=== PATIENT | female | born 1945 | race Caucasian/White ===

== ENCOUNTER → 2023-08-26 10:16 | Outpatient (CLI) | payer MEDICARE, OTHER, SELFPAY ==
--- NOTE | 2023-08-26 10:25 | DI.RAD.S_ITS ---
Bone Density Report Name: POLLO AUSTIN Age: 77 Sex: Female Ethnicity: White Date of : 1945 Indication: postmenopausal; screening for osteoporosis; parental hip fracture; Referring Provider: KEL PRAKASH Study: Bone densitometry was performed. Exam Date: August 26, 2023 Accession number: [id number] Bone Density: Region BMD T-score Z-score Classification AP Spine(L1-L4) 1.293 2.2 4.7 Normal Femoral Neck (Left) 0.773 -0.7 1.5 Normal Total Hip (Left) 1.025 0.7 2.6 Normal Femoral Neck (Right) 0.722 -1.1 1.0 Osteopenia Total Hip (Right) 0.987 0.4 2.3 Normal Total Hip Mean 1.006 0.6 2.5 Normal World Health Organization criteria for BMD impression classify patients as: Normal (T-score at or above -1.0), Osteopenia (T-score between -1.0 and -2.5), or Osteoporosis (T-score at or below -2.5). 10-year Fracture Risk(1): Major Osteoporotic Fracture 15% Hip Fracture 6.7% Reported Risk Factors: [place] (), Neck BMD=0.722, BMI=40.6, parental fracture (1) FRAX(R) Version 3.08. Fracture probability calculated for an untreated patient. Fracture probability may be lower if the patient has received treatment. Impression: The patient has low bone mass, based on the Right Femoral Neck T-score. The patient has an estimated ten-year risk of hip fracture of 6.7% and an estimated ten-year risk of major fracture of 15%, based on the WHO FRAX algorithm. The patient has risk factors, including: parental hip fracture. Discussion: BONE DENSITY IS LOW AT ONE OR MORE SKELETAL SITES. THE PATIENT'S BMD AND CLINICAL RISK FACTORS CONTRIBUTE TO THIS PATIENT'S INCREASED RISK OF FRACTURE. This patient's lowest T-score is low at one or more skeletal sites. It meets the World Health Organization's (WHO) criteria for low bone mass (T-score between -1.0 and -2.5). The patient's 10-year risk of hip fracture as calculated by FRAX exceeds the threshold where pharmacological therapy is recommended by the National Osteoporosis Foundation (NOF). However, all treatment decisions require clinical judgment and consideration of individual patient factors, including patient preferences, comorbidities, previous drug use, risk factors not captured in the FRAX model (e.g., frailty, falls, vitamin D deficiency, increased bone turnover, interval significant decline in bone density) and possible under or overestimation of fracture risk by FRAX. The patient should follow a healthful lifestyle (good nutrition with adequate calcium and vitamin D, and appropriate weight-bearing exercise). Follow-Up: Consider a repeat BMD and Vertebral Fracture Assessment (VFA) exam in 2 years or sooner if medically necessary, to reassess this patient's status. Reported by: SIVAKUMAR KRUEGER M.D. on 08/26/2023 11:06:00 AM.
== END ==
LOC: RAD 10:23
PROVIDERS: PCP Internal Medicine; Referring Provider Internal Medicine; Visit Provider Internal Medicine
DX: M85.851 Other specified disorders of bone density and structure, right thigh (principal); Z78.0 Asymptomatic menopausal state
CPT/HCPCS: 77080

== ENCOUNTER → 2023-10-08 11:36 | Outpatient (CLI) | payer MEDICARE, OTHER, SELFPAY ==
--- NOTE | 2023-10-08 11:37 | DI.MG.S_ITS ---
UNILATERAL LEFT DIGITAL DIAGNOSTIC MAMMOGRAM 3D/2D WITH ADDITIONAL VIEWS: 10/08/2023 CLINICAL: Additional evaluation requested from prior study. Comparison is made to exams dated: 09/11/2023 mammogram, 09/28/2021 mammogram, and 06/19/2018 mammogram - Outside facility. There are scattered areas of fibroglandular density in the left breast (category b / 25%-50% glandular tissue). There is a focal asymmetry with an obscured and circumscribed margin in the left breast at 2 o'clock posterior depth. This is seen in additional views. This finding was likely present but less prominent on prior studies dating back to 2019. No other significant masses or calcifications are seen in the breast. IMPRESSION: INCOMPLETE: NEEDS ADDITIONAL IMAGING EVALUATION The focal asymmetry in the left breast is indeterminate. An ultrasound is recommended. Based on the Tyrer Cuzick model (a risk assessment model) the patient's lifetime risk is 2.1% and her 10 year risk is 0.0%. According to the ACR, ACS, and NCCN guidelines, an annual breast MRI exam along with mammogram is recommended if the patient's lifetime risk is 20% or greater. This exam was interpreted at Station ID: [id number]. NOTE: For mammograms, a report in lay terms will be sent to the patient. Approximately 15% of breast malignancies will not be visualized mammographically. In the management of a palpable breast mass, a negative mammogram must not discourage biopsy of a clinically suspicious lesion. Electronically Signed By: Steve ahmadi/sarika:10/08/2023 13:34:29 ACR BI-RADS Category 0: Incomplete [id number]
--- NOTE | 2023-10-08 11:37 | DI.US.S_ITS ---
LIMITED SECONDLOOK ULTRASOUND OF LEFT BREAST: 10/08/2023 CLINICAL: Follow up from addtional views. Baseline exam. Additional evaluation requested from prior study. Comparison is made to exams dated: 10/08/2023 mammogram - [facility], 09/11/2023 mammogram, 09/28/2021 mammogram, and 06/19/2018 mammogram - Outside facility. Color flow ultrasound of the left breast 2 o'clock region was performed. Sáncehz scale images of the real-time examination were reviewed. There is a 2.1 cm x 1.7 cm x 0.6 cm irregular fluid collection with an irregular internal wall in the left breast at 2 o'clock posterior depth 10 cm from the nipple. This irregular fluid collection is anechoic with posterior acoustic enhancement. This correlates with mammography findings. Color flow imaging demonstrates that there is no vascularity present. IMPRESSION: PROBABLY BENIGN The 2.1 cm x 1.7 cm x 0.6 cm irregular fluid collection in the left breast is probably benign. A follow-up left ultrasound in 6 months is recommended to demonstrate stability. This exam was interpreted at Station ID: [id number]. Electronically Signed By: Steve ahmadi/sarika:10/08/2023 13:36:24 letter sent: Followup Recommended Ultrasound BI-RADS: 3 Probably benign
== END ==
LOC: MAMMO 11:37
PROVIDERS: PCP Internal Medicine; Referring Provider Internal Medicine; Visit Provider Internal Medicine
DX: R92.8 Other abnormal and inconclusive findings on diagnostic imaging of breast (principal); R92.322 Mammographic fibroglandular density, left breast
CPT/HCPCS: 76642; 77065; G0279

== ENCOUNTER 2024-05-13 12:49 | Emergency (ER) | payer MEDICARE, OTHER, SELFPAY ==
[2024-05-13] VITALS (12 sets, daily range): BP systolic 135–233; BP diastolic 73–108; PULSE 61–75; RESP 16; TEMP 36.5; O2SAT 92–96; BMI 40.2
--- NOTE | 2024-05-13 13:12 | DI.CT.S_ITS ---
PROCEDURE: CT KIDNEY URETER BLADDER (KUB) INDICATIONS: Right-sided flank pain eval for stone TECHNIQUE: Axial sections were acquired from the lung bases to the pubic symphysis. Coronal and sagittal reformats were performed. For radiation dose reduction, the following was used: automated exposure control, adjustment of mA and/or kV according to patient size. COMPARISON: None. FINDINGS: Image quality: Diagnostic. Lower Chest: There are 2 3 mm nodules in the right middle lobe. No priors. URINARY: Right Kidney: No stones or hydronephrosis. Right Ureter: No hydroureter. Left Kidney: [id number] hydronephrosis with large extrarenal pelvis. Calcification is present in the renal pelvis measuring 9 mm, Hounsfield units 1213. Left Ureter: No hydroureter. Bladder: Normal wall thickness. No stones. ABDOMEN: Liver: No contour-deforming solid mass. Gallbladder: Removed. Biliary ducts: No biliary dilation. Pancreas: No ductal dilation. Spleen: Size is within normal limits. Adrenal Glands: No adrenal nodules. Stomach and Bowel: Normal colonic caliber, without significant wall thickening. Mild colonic stool without obstruction. Diverticula without inflammatory change. Peritoneum: Trace dependent pelvic fluid. No free air. Ventral Wall: No hernia. Abdominal Nodes: No enlarged retroperitoneal or mesenteric lymph nodes. Vessels: Aorta and inferior vena cava are normal in size. PELVIS: Pelvic Organs: Unremarkable. Pelvic Nodes: 1.4 cm inguinal lymph in short axis. Miscellaneous: No inguinal hernias are seen. 4.7 x 5.5 cm fat containing mass with areas internal calcification or potentially vascularity in the left anterior thighs series 2, image 162. No priors. Bones: Unremarkable. IMPRESSION: No visualized right renal or ureteral obstruction. No calcification. Left kidney demonstrates mild hydronephrosis with 9 mm stone in the prominent extrarenal pelvis. 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 Diverticulosis. Fat containing mass with calcifications or possibly vascularity in the right anterior thigh. 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 MRI is recommended for further evaluation. 1 4 cm left inguinal lymph node. This could be reactive in nature. Interval follow-up is recommended. 3 mm right middle lobe pulmonary nodules. No priors are available for comparison. These are nonspecific. Dictated by: Lakeisha Osorio M.D. on 05/13/2024 at 14:24 Approved by: Lakeisha Osorio M.D. on 05/13/2024 at 14:30
[2024-05-13 14:08] LABS: Appearance Urine UA CLEAR; Bilirubin Urine UA NEGATIVE (NEGATIVE); Color Urine UA YELLOW; Glucose Urine UA NEGATIVE (Negative); Ketones Urine UA NEGATIVE (NEGATIVE); Leukocyte Esterase Urine UA NEGATIVE (NEGATIVE); Nitrite Urine UA NEGATIVE (Negative); Occult Blood Urine UA 2+ (Negative); Protein Urine UA 3+ (Negative)
[2024-05-13 14:10] LABS: pH Urine UA 8.5 (4.5-8.0)
[2024-05-13 14:20] LABS: Bacteria Urine Occasional (0-1); Culture Indicated Urine Cult Not Indicated; RBC Urine 5-10/HPF (0-5/HPF); Squamous Epithelial Cell Urine 5-10 /HPF (0-5/HPF); Urine Volume 10mL (spun); WBC Urine 0-1/HPF (0-5/HPF)
--- NOTE | 2024-05-13 14:40 | ED_ITS ---
HPI - Back Pain/Injury General Chief Complaint: Back Pain/Injury Stated Complaint: R Side/Back Pain Time Seen by Provider: 05/13/24 13:12 Source: patient Mode of arrival: Ambulatory Limitations: no limitations History of Present Illness HPI Narrative: 78-year-old female who states she was woken up from sleep at approximately 0300 hours in the morning with right-sided upper abdominal discomfort. She has had a hysterectomy and a cholecystectomy. She states the pain was constant however now it is much better if not somewhat resolved. No skin changes over the area. She states that she did not think that it particularly hurt when she touched the area but when she did take a deep breath. She has been coughing recently. She did not take her blood pressure medications this morning. No change in urinary symptoms. No change in bowel habits. No fevers. No shortness of breath. Related Data Home Medications Medication Instructions Recorded Confirmed amlodipine 5 mg tablet 5 mg PO DAILY 05/13/24 05/13/24 carvedilol 12.5 mg tablet 12.5 mg PO BID 05/13/24 05/13/24 lisinopril 20 mg tablet 20 mg PO BID 05/13/24 05/13/24 Allergies Allergy/AdvReac Type Severity Reaction Status Date / Time No Known Drug Allergies Allergy Verified 05/13/24 12:59 Review of Systems Review of Systems ROS Unobtainable: All systems reviewed & are unremarkable except as noted in HPI and below Exam Initial Vital Signs Initial Vital Signs: Vital Signs Temperature 97.7 F 05/13/24 13:00 Pulse Rate 75 05/13/24 13:00 Respiratory Rate 16 05/13/24 13:00 Blood Pressure 220/98 H 05/13/24 13:00 Pulse Oximetry 96 05/13/24 13:00 Oxygen Delivery Method Room Air 05/13/24 13:00 Const General: cooperative, comfortable and No ill appearing HENTN Head: normal to inspection and normocephalic Resp Effort & Inspection: normal respiratory effort Auscultation: clear to auscultation bilaterally Cardio Rate: regular rate Rhythm: regular rhythm GI Inspection: normal to inspection and non-distended Palpation: soft, No firm, No guarding and No tender Skin General: no rashes or lesions noted Neuro General: patient alert, patient awake and patient oriented x3 Extrem General: capillary refill normal Course Orders Ordered: ED Orders 05/13/24 13:12 CT kidney ureter bladder (KUB) Stat 05/13/24 13:34 Urinalysis and Microscopic Stat 05/13/24 14:30 Basic Metabolic Panel Stat Complete Blood Count AUTO DIFF Stat 05/13/24 14:40 Urine Culture Stat Discontinued Medications Carvedilol (Carvedilol 12.5 Mg Tablet) 12.5 mg PO NOW ONE Stop: 05/13/24 14:50 Last Admin: 05/13/24 14:55 Dose: 12.5 mg Documented By: RB Lisinopril (Lisinopril 20 Mg Tablet) 20 mg PO NOW ONE Stop: 05/13/24 14:50 Last Admin: 05/13/24 14:56 Dose: 20 mg Documented By: RB Vital Signs Vital signs: Vital Signs - 8 hr 05/13/24 13:00 05/13/24 13:05 05/13/24 13:36 Temperature 97.7 F Pulse Rate 75 66 Respiratory Rate 16 Blood Pressure 220/98 H 196/92 H Pulse Oximetry 96 94 Oxygen Delivery Method Room Air 05/13/24 13:39 05/13/24 13:39 05/13/24 14:00 Temperature Pulse Rate 66 Respiratory Rate Blood Pressure 201/88 H 213/87 H Pulse Oximetry 94 Oxygen Delivery Method 05/13/24 14:00 05/13/24 14:30 05/13/24 14:33 Temperature Pulse Rate 61 69 Respiratory Rate Blood Pressure 233/100 H Pulse Oximetry 92 93 Oxygen Delivery Method 05/13/24 14:33 05/13/24 14:49 05/13/24 14:49 Temperature Pulse Rate 67 69 Respiratory Rate Blood Pressure 233/108 H Pulse Oximetry 94 94 Oxygen Delivery Method 05/13/24 14:55 05/13/24 14:56 05/13/24 15:00 Temperature Pulse Rate 67 67 68 Respiratory Rate Blood Pressure 233/100 H 233/100 H Pulse Oximetry 95 Oxygen Delivery Method 05/13/24 15:30 05/13/24 15:30 Temperature Pulse Rate 65 Respiratory Rate Blood Pressure 135/73 Pulse Oximetry 95 Oxygen Delivery Method MDM - Back Pain/Injury Lab Data Attestation: I reviewed the patient's lab results. 05/13/24 14:30 05/13/24 14:30 Labs: Lab Results 05/13/24 05/13/24 Range/Units 13:34 14:30 WBC 9.4 (4.5-11.0) X10^3/uL RBC 4.10 (4.0-5.2) X10^6/uL Hgb 13.4 (12.0-16.0) g/dL Hct 39.2 (36-46) % MCV 95.4 (80-100) fL MCH 32.7 (26-34) PG MCHC 34.2 (30-36) % RDW 15.2 H (11.6-14.8) % Plt Count 128 L (150-400) X10^3/uL Neut % (Auto) 83.7 H (50-75) % Lymph % (Auto) 8.2 L (25-40) % Ellis % (Auto) 6.7 (3-14) % Eos % (Auto) 0.7 L (2-4) % Baso % (Auto) 0.7 (0-2) % Neut # (Auto) 7900 H (2754-0562) /uL Lymph # (Auto) 800 L (4029-7532) /uL Ellis # (Auto) 600 (0-900) /uL Eos # (Auto) 100 (0-450) /uL Baso # (Auto) 100 (0-100) /uL Sodium 134 L (137-145) mmol/L Potassium 4.4 (3.4-5.1) mmol/L Chloride 99 (98-107) mmol/L Carbon Dioxide 31 (22-32) mmol/L BUN 13 (7-17) mg/dL Creatinine 0.81 (0.52-1.04) mg/dL Estimated GFR > 60 (>60) mL/min BUN/Creatinine Ratio 16.0 (6-22) Glucose 96 (80-110) mg/dL Calcium 8.6 (8.4-10.2) mg/dL Urine Color Yellow Urine Appearance Clear Urine pH 8.5 H (4.5-8.0) Ur Specific [place] 1.020 (1.000-1.035) Urine Protein 3+ H (Negative) Urine Glucose (UA) Negative (Negative) g/dL Urine Ketones Negative (NEGATIVE) Urine Occult Blood 2+ H (Negative) Urine Nitrate Negative (Negative) Urine Bilirubin Negative (NEGATIVE) Urine Urobilinogen 1.0 (0.2) E.U./dL Ur Leukocyte Esterase Negative (NEGATIVE) Urine RBC 5-10/hpf H (0-5/HPF) Urine WBC 0-1/hpf (0-5/HPF) Ur Squamous Epith Cells 5-10 /hpf H (0-5/HPF) Urine Bacteria Occasional (0-1) (None) Ur Culture Indicated? Cult not indicated Vol Urine Centrifuged 10ml (spun) Imaging Data CT scan - abdomen/pelvis: Radiologist's Impression: PROCEDURE: CT KIDNEY URETER BLADDER (KUB) INDICATIONS: Right-sided flank pain eval for stone TECHNIQUE: Axial sections were acquired from the lung bases to the pubic symphysis. Coronal and sagittal reformats were performed. For radiation dose reduction, the following was used: automated exposure control, adjustment of mA and/or kV according to patient size. COMPARISON: None. FINDINGS: Image quality: Diagnostic. Lower Chest: There are 2 3 mm nodules in the right middle lobe. No priors. URINARY: Right Kidney: No stones or hydronephrosis. Right Ureter: No hydroureter. Left Kidney: Jugl-um-ukhsivos hydronephrosis with large extrarenal pelvis. Calcification is present in the renal pelvis measuring 9 mm, Hounsfield units 1213. Left Ureter: No hydroureter. Bladder: Normal wall thickness. No stones. ABDOMEN: Liver: No contour-deforming solid mass. Gallbladder: Removed. Biliary ducts: No biliary dilation. Pancreas: No ductal dilation. Spleen: Size is within normal limits. Adrenal Glands: No adrenal nodules. Stomach and Bowel: Normal colonic caliber, without significant wall thickening. Mild colonic stool without obstruction. Diverticula without inflammatory change. Peritoneum: Trace dependent pelvic fluid. No free air. Ventral Wall: No hernia. Abdominal Nodes: No enlarged retroperitoneal or mesenteric lymph nodes. Vessels: Aorta and inferior vena cava are normal in size. PELVIS: Pelvic Organs: Unremarkable. Pelvic Nodes: 1.4 cm inguinal lymph in short axis. Miscellaneous: No inguinal hernias are seen. 4.7 x 5.5 cm fat containing mass with areas internal calcification or potentially vascularity in the left anterior thighs series 2, image 162. No priors. Bones: Unremarkable. IMPRESSION: No visualized right renal or ureteral obstruction. No calcification. Left kidney demonstrates mild hydronephrosis with 9 mm stone in the prominent extrarenal pelvis. 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 Diverticulosis. Fat containing mass with calcifications or possibly vascularity in the right anterior thigh. 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 MRI is recommended for further evaluation. 1 4 cm left inguinal lymph node. This could be reactive in nature. Interval follow-up is recommended. 3 mm right middle lobe pulmonary nodules. No priors are available for comparison. These are nonspecific. MDM Narrative Medical decision making narrative: Patient does report that her discomfort is actually improved from what it was earlier today. She was no skin changes over the area concerning for zoster. Her discomfort is in the right side of her abdomen. She was had her gallbladder removed. CT scan shows no signs of right-sided nephro/ureterolithiasis. Urinalysis not consistent with a UTI. Low suspicion for pyelo. No signs of diverticulitis/bowel obstruction. No other signs of an acute intra-abdominal surgical pathology. She does have a left-sided proximal ureteral stone she was no discomfort over on that side. She also has other multiple incidental findings on the CT scan. I did discuss these with her. She was an appointment with a new primary doctor in approximately 1 month from now and I advised that she talk with her doctor about these incidental findings for further evaluation. She was given return precautions and follow-up instructions. She expressed understanding and agreement with plan. Discharge Plan Departure Patient Disposition: Home Clinical Impression: Abdominal pain, Pulmonary nodule, Inguinal lymphadenopathy, Mass of right thigh, Left ureteral calculus Instructions: DI for Abdominal Pain-Adult Activity Restrictions/Additional Instructions: There were multiple incidental findings on the CT scan today that when you follow-up with your primary care doctor the beginning of next month I recommend that you talk with her to discuss further evaluation and treatment. You can take Tylenol as needed. Return to the emergency department for new or worsening symptoms. Prescriptions: No Action carvedilol 12.5 mg tablet 12.5 mg PO BID amlodipine 5 mg tablet 5 mg PO DAILY lisinopril 20 mg tablet 20 mg PO BID Patient Comments: Take 1 tablet by mouth every morning and 1/2 tablet by mouth every evening. Referrals: Nicole Saunders MD [Primary Care Provider] - Stand Alone Forms: Patient Portal/API/Survey
[2024-05-13 14:44] LABS: Add Manual Diff / Slide Review NO; Basophils Absolute Auto 100 /uL (0-100); Basophils Percent Auto 0.7 % (0-2); Eosinophils Absolute Auto 100 /uL (0-450); Eosinophils Percent Auto 0.7 % (2-4); Hematocrit 39.2 % (36-46); Hemoglobin 13.4 g/dL (12.0-16.0); Lymphocytes Absolute Auto 800 /uL (1100-4500); Lymphocytes Percent Auto 8.2 % (25-40); Mean Corpuscular HGB Conc 34.2 % (30-36); Mean Corpuscular Hemoglobin 32.7 PG (26-34); Mean Corpuscular Volume 95.4 fL (80-100); Monocytes Absolute Auto 600 /uL (0-900); Monocytes Percent Auto 6.7 % (3-14); Neutrophils Absolute Auto 7900 /uL (1500-7000); Neutrophils Percent Auto 83.7 % (50-75); Platelet Count 128 X10^3/uL (150-400); Red Cell Distribution Width 15.2 % (11.6-14.8); White Blood Cell Count 9.4 X10^3/uL (4.5-11.0)
[2024-05-13] MEDS: carvediloL 12.5 MG TABLET PO (14:55)
[2024-05-13] MEDS: lisinopriL 20 MG TABLET PO (14:56)
--- NOTE | 2024-05-13 14:58 | PC.NURSE ---
this RN noted increased blood pressure. I asked patient if they had known high blood pressure. They confirmed that they did and forgot to take their medications. This RN reconciled patients blood pressure medications. Patient takes lisinopril and carvedilol twice daily and amolodapine at night. This RN informed provider of elevated blood pressure and they input new orders. This RN administered medications.
[2024-05-13 14:59] LABS: Blood Urea Nitrogen 13 mg/dL (7-17); Calcium 8.6 mg/dL (8.4-10.2); Carbon Dioxide 31 mmol/L (22-32); Chloride 99 mmol/L (98-107); Estimated Glomerular Filt Rate > 60 mL/min (>60); Glucose 96 mg/dL (80-110); HEMOLYSIS 16 (0-50); Potassium 4.4 mmol/L (3.4-5.1); Sodium 134 mmol/L (137-145)
== END 2024-05-13 15:57 | disposition home or self-care (01) ==
PROVIDERS: Emergency Provider Emergency Medicine; PCP Internal Medicine
DX: R10.11 Right upper quadrant pain (principal); R91.1 Solitary pulmonary nodule; R59.0 Localized enlarged lymph nodes; N20.1 Calculus of ureter; Z90.49 Acquired absence of other specified parts of digestive tract; Z90.710 Acquired absence of both cervix and uterus
CPT/HCPCS: 74176; 80048; 81001; 85025; 87086; 99283; 99284

== ENCOUNTER 2024-10-14 14:26 | Inpatient (IN) | payer MEDICARE, OTHER, SELFPAY ==
[2024-10-14] VITALS (33 sets, daily range): BP systolic 143–189; BP diastolic 51–109; PULSE 37–57; RESP 11–36; TEMP 36.6–37.1; O2SAT 86–98; BMI 39.5
--- NOTE | 2024-10-14 14:36 | EKG_ITS ---
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
--- NOTE | 2024-10-14 14:36 | DI.RAD.S_ITS ---
PROCEDURE: XR CHEST 1V INDICATIONS: Shortness of breath TECHNIQUE: One view of the chest was acquired. COMPARISON: None. FINDINGS: Surgical changes and devices: None. Lungs and pleura: Mild increased pulmonary vascularity. Minimal blunting of the costophrenic angles. Mediastinum: Mediastinal contours appear normal. Heart size is enlarged. Bones and chest wall: No suspicious bony lesions. Overlying soft tissues appear unremarkable. IMPRESSION: Increased vascularity with likely trace effusions and cardiomegaly consistent with edema. Dictated by: Lakeisha Osorio M.D. on 10/14/2024 at 15:27 Approved by: Lakeisha Osorio M.D. on 10/14/2024 at 15:28
[2024-10-14 14:56] LABS: Add Manual Diff / Slide Review NO; Basophils Absolute Auto 0 /uL (0-100); Basophils Percent Auto 0.5 % (0-2); Eosinophils Absolute Auto 200 /uL (0-450); Eosinophils Percent Auto 2.4 % (2-4); Hematocrit 35.5 % (36-46); Hemoglobin 12.5 g/dL (12.0-16.0); Lymphocytes Absolute Auto 800 /uL (1100-4500); Lymphocytes Percent Auto 12.2 % (25-40); Mean Corpuscular HGB Conc 35.2 % (30-36); Mean Corpuscular Volume 96.6 fL (80-100); Monocytes Absolute Auto 500 /uL (0-900); Monocytes Percent Auto 8.6 % (3-14); Neutrophils Absolute Auto 4800 /uL (1500-7000); Neutrophils Percent Auto 76.3 % (50-75); Platelet Count 128 X10^3/uL (150-400); Red Blood Cell Count 3.68 X10^6/uL (4.0-5.2); Red Cell Distribution Width 15.2 % (11.6-14.8); White Blood Cell Count 6.3 X10^3/uL (4.5-11.0)
[2024-10-14 15:00] LABS: INR 1.2 (0.9-1.3); Prothrombin Time 13.4 SECONDS (9.4-12.5)
[2024-10-14 15:05] LABS: Lactate (Lactic Acid) 0.5 mmol/L (0.7-2.1)
[2024-10-14 15:06] LABS: Alanine Aminotransferase 20 IU/L (<35); Albumin 3.9 g/dL (3.5-5.0); Albumin Globulin Ratio 1.1 (1.0-2.8); Alkaline Phosphatase 83 U/L (38-126); Aspartate Aminotransferase 30 IU/L (14-36); BUN Creatinine Ratio 24.4 (6-22); Bilirubin Total 1.7 mg/dL (0.2-1.3); Blood Urea Nitrogen 20 mg/dL (7-17); Calcium 8.6 mg/dL (8.4-10.2); Carbon Dioxide 32 mmol/L (22-32); Chloride 100 mmol/L (98-107); Estimated Glomerular Filt Rate > 60 mL/min (>60); Globulin 3.4 g/dL (1.7-4.1); Glucose 47 mg/dL (70-99); HEMOLYSIS < 15 (0-50); Potassium 3.9 mmol/L (3.4-5.1); Sodium 136 mmol/L (137-145); Total Protein 7.3 g/dL (6.3-8.2)
[2024-10-14 15:17] LABS: NT-proBNP (BNP-Adult 18+) 1220 pg/mL (<450); Troponin I < 0.012 ng/mL (0.01-0.034)
--- NOTE | 2024-10-14 15:25 | ED.SOB ---
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 Patient and family states it has been weeks to months. Patient came today because her son made her. He states she would still be at home otherwise. They note that she was had increasing dyspnea with exertion she does not feel short of breath with rest. Does have some orthopnea but it was not worsening. They note she was got chronic swelling in her extremities but not worse than her normal. She denies any chest pain or pressure. No syncope or lightheadedness. She was chronic dizziness for the past 2 years with no acute changes. She occasionally has some nausea with her dizziness. Patient has not had any new issues with bowel movements or urination. She was not had any changes to mental status. Son notes she does have some memory issues that is seem to be worse in the morning. He was does state she was sleeps sometimes up to 16 hours a day but this is her normal baseline for the past year or 2. He does note that she was transferred to [facility] for varices and multi organ failure about 3 years ago they diuresed about 7 L off of her and banded her varices at that time. They have not appreciated any black or bloody stools since. Home medications currently are carvedilol 12.5 mg b.i.d., lisinopril 20 mg in the morning and 10 mg in the evening, Lasix 20 mg a daily and amlodipine 5 mg daily. She was had prior cholecystectomy and variceal banding no other prior surgical interventions or cardiac stents noted. No tobacco, denies any history of alcohol use, no recreational drugs. JEAN-PAUL Goncalves as her primary care. Related Data Home Medications Medication Instructions Recorded Confirmed amlodipine 5 mg tablet 5 mg PO QPM 05/13/24 10/14/24 carvedilol 12.5 mg tablet 12.5 mg PO BID 05/13/24 10/14/24 lisinopril 20 mg tablet See Rx Instructions .Route .COMPLEX 05/13/24 10/14/24 acetylcysteine (PF) 10 % in 1 drp ophthalmic (eye) BID 10/14/24 10/14/24 sterile water eye drops cyclosporine 0.1 %-chondroitin 1 drp ophthalmic (eye) BID 10/14/24 10/14/24 sulfate A sodium 0.25 % eye drops (Cyclosporine in [place]) furosemide 20 mg tablet 20 mg PO DAILY 10/14/24 10/14/24 insulin glargine 100 unit/mL unit SUBCUT 10/14/24 subcutaneous solution (Lantus U-100 Insulin) peg 400-propylene glycol (PF) 0.4 1 drp ophthalmic (eye) BID 10/14/24 10/14/24 %-0.3 % eye drops in a dropperette (Systane (PF)) Allergies Allergy/AdvReac Type Severity Reaction Status Date / Time No Known Drug Allergies Allergy Verified 05/13/24 12:59 Review of Systems Review of Systems ROS Unobtainable: All systems reviewed & are unremarkable except as noted in HPI and below Patient History Social History Smoking Status: Never smoker Smoking Status: Never smoker Exam Narrative Exam Narrative: GENERAL: Alert and oriented x three, mild distress HEENT: Head normocephalic, atraumatic, EOMI, pupils reactive, face symmetric, moist mucous membranes NECK: Supple, full range of motion CARDIOVASCULAR: Bradycardic but regular rhythm without murmurs, rubs or gallops. Bilateral extremity nonpitting edema with appears to be chronic venous stasis changes. RESPIRATORY: Breath sounds equal bilaterally, no wheezes, no rhonchi, bilateral crackles. No tachypnea ABDOMEN: Soft, nontender. Normoactive bowel sounds all 4 quadrants. No guarding or rebound, rigidity, no mass : No CVA tenderness EXTREMITIES: Normal range of motion. Neurovascularly intact. NEUROLOGICAL: Cranial nerves II through XII grossly intact. Moving all extremities SKIN: Warm, dry, no petechiae, no rashes or lesions. Initial Vital Signs Initial Vital Signs: Vital Signs Temperature 98 F 10/14/24 14:32 Pulse Rate 51 L 10/14/24 14:32 Respiratory Rate 18 10/14/24 14:32 Blood Pressure 157/69 H 10/14/24 14:32 Pulse Oximetry 91 10/14/24 14:32 Oxygen Delivery Method Room Air 10/14/24 14:32 Course Orders Ordered: ED Orders 10/14/24 14:36 XR chest 1V Stat EKG-12 Lead Stat Measure peak expiratory flow STAT RT Consult Eval and Treat STAT 10/14/24 14:45 Complete Blood Count AUTO DIFF Stat Comprehensive Metabolic Panel Stat Lactate (Lactic Acid) Stat NT-proBNP (BNP-Adult 18+) Stat Prothrombin Time INR Stat Troponin I Stat Acetaminophen (Acetaminophen 325 Mg Tablet) 650 mg PO Q6H PRN PRN Reason: Fever/Mild Pain (1-3) Heparin Sodium (Porcine) (Heparin 5,000 Unit/Ml Vial) 5,000 unit SUBCUT BID ODILIA Naloxone HCl (Naloxone 0.4 Mg/Ml Vial) 0.2 mg IV Q2MIN PRN PRN Reason: Opiate Reversal Discontinued Medications Furosemide (Furosemide 40 Mg/4 Ml Vial) 40 mg IV NOW ONE Stop: 10/14/24 15:38 Last Admin: 10/14/24 15:55 Dose: 40 mg Documented By: RB Vital Signs Vital signs: Vital Signs - 8 hr 10/14/24 14:32 10/14/24 14:40 10/14/24 14:42 Temperature 98 F Pulse Rate 51 L 52 L 51 L Respiratory Rate 18 36 H Blood Pressure 157/69 H Pulse Oximetry 91 92 90 L Oxygen Delivery Method Room Air Nasal Cannula Room Air Oxygen Flow Rate 10/14/24 14:44 10/14/24 14:46 10/14/24 14:48 Temperature Pulse Rate 49 L 47 L Respiratory Rate 23 27 H Blood Pressure 174/75 H Pulse Oximetry 86 L 95 Oxygen Delivery Method Room Air Nasal Cannula Oxygen Flow Rate 2.5 10/14/24 14:48 10/14/24 14:50 10/14/24 14:52 Temperature Pulse Rate 47 L 47 L 48 L Respiratory Rate 11 L 19 19 Blood Pressure Pulse Oximetry 97 98 98 Oxygen Delivery Method Nasal Cannula Nasal Cannula Nasal Cannula Oxygen Flow Rate 2.5 2.5 2.5 10/14/24 14:54 10/14/24 14:56 10/14/24 14:58 Temperature Pulse Rate 48 L 41 L 43 L Respiratory Rate 16 16 13 Blood Pressure Pulse Oximetry 97 96 97 Oxygen Delivery Method Nasal Cannula Nasal Cannula Nasal Cannula Oxygen Flow Rate 2.5 2.5 2.5 10/14/24 15:00 10/14/24 15:00 10/14/24 15:15 Temperature Pulse Rate 44 L 46 L Respiratory Rate 14 17 Blood Pressure 155/72 H Pulse Oximetry 96 97 Oxygen Delivery Method Nasal Cannula Nasal Cannula Oxygen Flow Rate 2.5 2.5 10/14/24 15:30 10/14/24 15:31 10/14/24 15:31 Temperature Pulse Rate 37 L 37 L Respiratory Rate 15 17 Blood Pressure 143/64 H Pulse Oximetry 97 96 Oxygen Delivery Method Nasal Cannula Nasal Cannula Oxygen Flow Rate 2.5 1 10/14/24 15:45 10/14/24 16:00 10/14/24 16:00 Temperature Pulse Rate 47 L 43 L Respiratory Rate 16 17 Blood Pressure 164/69 H Pulse Oximetry 97 95 Oxygen Delivery Method Nasal Cannula Oxygen Flow Rate 1 10/14/24 16:15 10/14/24 16:30 10/14/24 16:30 Temperature Pulse Rate 41 L 44 L Respiratory Rate 18 14 Blood Pressure 170/78 H Pulse Oximetry 96 96 Oxygen Delivery Method Oxygen Flow Rate 10/14/24 16:45 10/14/24 17:00 10/14/24 17:04 Temperature Pulse Rate 38 L 57 L Respiratory Rate 13 Blood Pressure 166/109 H Pulse Oximetry 96 Oxygen Delivery Method Oxygen Flow Rate 10/14/24 17:04 Temperature Pulse Rate 46 L Respiratory Rate 22 Blood Pressure Pulse Oximetry 94 Oxygen Delivery Method Nasal Cannula Oxygen Flow Rate 1 MDM - SOB/Dyspnea Lab Data 10/14/24 14:45 10/14/24 14:45 Labs: Lab Results 10/14/24 Range/Units 14:45 WBC 6.3 (4.5-11.0) X10^3/uL RBC 3.68 L (4.0-5.2) X10^6/uL Hgb 12.5 (12.0-16.0) g/dL Hct 35.5 L (36-46) % MCV 96.6 (80-100) fL MCH 34.0 (26-34) PG MCHC 35.2 (30-36) % RDW 15.2 H (11.6-14.8) % Plt Count 128 L (150-400) X10^3/uL Neut % (Auto) 76.3 H (50-75) % Lymph % (Auto) 12.2 L (25-40) % [place] % (Auto) 8.6 (3-14) % Eos % (Auto) 2.4 (2-4) % Baso % (Auto) 0.5 (0-2) % Neut # (Auto) 4800 (9918-8188) /uL Lymph # (Auto) 800 L (2096-6090) /uL [place] # (Auto) 500 (0-900) /uL Eos # (Auto) 200 (0-450) /uL Baso # (Auto) 0 (0-100) /uL PT 13.4 H (9.4-12.5) SECONDS INR 1.2 (0.9-1.3) Sodium 136 L (137-145) mmol/L Potassium 3.9 (3.4-5.1) mmol/L Chloride 100 (98-107) mmol/L Carbon Dioxide 32 (22-32) mmol/L BUN 20 H (7-17) mg/dL Creatinine 0.82 (0.52-1.04) mg/dL Estimated GFR > 60 (>60) mL/min BUN/Creatinine Ratio 24.4 H (6-22) Glucose 47 L (70-99) mg/dL Lactate 0.5 L (0.7-2.1) mmol/L Calcium 8.6 (8.4-10.2) mg/dL Total Bilirubin 1.7 H (0.2-1.3) mg/dL AST 30 (14-36) IU/L ALT 20 (<35) IU/L Alkaline Phosphatase 83 (38-126) U/L Troponin I < 0.012 (0.01-0.034) ng/mL NT-Pro-B Natriuret Pep 1220 H (<450) pg/mL Total Protein 7.3 (6.3-8.2) g/dL Albumin 3.9 (3.5-5.0) g/dL Globulin 3.4 (1.7-4.1) g/dL Albumin/Globulin Ratio 1.1 (1.0-2.8) Point of Care Testing Glucose POC 122 ECG Data Attestation: I personally reviewed and interpreted this ECG as follows: Prior ECG tracings: not available for review Interpretation: Sinus bradycardia first-degree AV block right bundle-branch block rate of 49 FL 210, QRS 8134, QRS of 446. MDM Narrative Medical decision making narrative: 79-year-old female with longstanding symptoms that seem consistent with heart failure patient does have a history of cirrhosis, sounds like she was had slowly progressively worsening symptoms. White count 6.3 hemoglobin is 12.5 platelets are 128 similar to May 22, 2024. INR today is 1.2 electrolytes are overall appropriate with a sodium of 136 BUN 20 creatinine 0.82 glucose is 47, bilirubin is 1.7, LFTs are all negative troponins less than 0.012 with a BNP of 1220. EKG shows sinus bradycardia first-degree AV block. No priors for comparison. Chest x-ray shows increased vascularity likely trace effusions and cardiomegaly consistent with a edema. Serum glucose was low, repeat point of care glucose is also low. Patient and family then noted that patient has been low today at home with a glucose of 27 this morning. She does take Lantus she was had cookie and some sugar water but no other solids or food today. Patient had she was sent some solids and repeat is in the 80s. Family notes she was taking 100 of Lantus in the morning and 90 of Lantus in the evening but has been frequently low lately. Patient was bradycardic here sometimes down into the 40s but has been consistently in the 60s on a prior visit. Does have a new O2 requirement here in the department. Does have a history of cirrhosis but does not appear to be any hepato renal failure. Patient had 40 mg of Lasix. Spoke with Dr. Waggoner, hospitalist accepts for observation. Patient has a history of cirrhosis has had banding but appears to be more CHF with slowly progressing symptoms and hypoxia today she does not appear to have any hepatorenal failure, has also been hypoglycemic but taking large amounts of Lantus with minimal intake but is improved here in the department with oral intake. Discharge Plan Departure Patient Disposition: Admitted as Observation Clinical Impression: Hypoglycemia, CHF (congestive heart failure) Admit Date/Time: 10/14/24 17:05 Admit Provider: Oswald Waggoner
--- NOTE | 2024-10-14 15:51 | PC.NURSE ---
Due to patient reduced lab blood sugar this RN took point of care blood sugar which was 37. This RN informed provider and gave patient 8oz of apple juice, yogurt and cheese and patient consumed entire amount of each.
[2024-10-14] MEDS: FUROSEMIDE 40 MG/4 ML VIAL IV (15:55)
--- NOTE | 2024-10-14 17:32 | P.HP_ITS ---
History of Present Illness History of Present Illness Date Patient Seen: 10/14/24 Chief complaint: Water retention X 30 Days Narrative: The patient is a 79-year-old female with HARPER cirrhosis, varices, HTN, and IDDM. She lives in [place] with her . He was her proxy decision maker. She was accompanied by her son who lives very nearby. She was found to be hypoglycemic this morning and took 3 cookies and had moderate improvement but remained confused. She was then brought to the ER where she was still confused and her hypoglycemia was corrected. She has hypoglycemia about twice a week but also has high blood sugars. She notes that her diet is quite variable and she was in follow her diabetic guidelines very well. She takes Lantus 100 in the morning and 90 at night. She was not take any pills or short-acting insulin. She also has HARPER cirrhosis and has had progressive volume overload. She was admitted to the hospital in [place] once and had 40-60 lb of water diuresed. She has a history of HARPER cirrhosis and variceal bleeding with variceal banding in the past. No recent nausea, vomiting, abdominal pain, hematemesis, or melena. She denies a known history of heart failure. She has been quite fatigued recently with walking. She denies any chest pain. Her son notes that she gets cold easily as well. [facility] Social History Smoking Status: Never smoker Meds Home Medications and Allergies Home Medications Medication Instructions Recorded Confirmed Type amlodipine 5 mg tablet 5 mg PO QPM 05/13/24 10/14/24 History carvedilol 12.5 mg tablet 12.5 mg PO BID 05/13/24 10/14/24 History lisinopril 20 mg tablet See Rx Instructions .Route .COMPLEX 05/13/24 10/14/24 History acetylcysteine (PF) 10 % in 1 drp ophthalmic (eye) BID 10/14/24 10/14/24 History sterile water eye drops cyclosporine 0.1 %-chondroitin 1 drp ophthalmic (eye) BID 10/14/24 10/14/24 History sulfate A sodium 0.25 % eye drops (Cyclosporine in [place]) furosemide 20 mg tablet 20 mg PO DAILY 10/14/24 10/14/24 History insulin glargine 100 unit/mL unit SUBCUT 10/14/24 History subcutaneous solution (Lantus U-100 Insulin) peg 400-propylene glycol (PF) 0.4 1 drp ophthalmic (eye) BID 10/14/24 10/14/24 History %-0.3 % eye drops in a dropperette (Systane (PF)) Allergies Allergy/AdvReac Type Severity Reaction Status Date / Time No Known Drug Allergies Allergy Verified 05/13/24 12:59 Review of Systems Review of Systems Narrative: All else reviewed and otherwise unremarkable except as noted in the history and physical. Exam Vital Signs (past 8 hours): - 10/14/24 14:32 10/14/24 14:40 10/14/24 14:42 Temperature 98 F Pulse Rate 51 L 52 L 51 L Respiratory Rate 18 36 H Blood Pressure 157/69 H Pulse Oximetry 91 92 90 L Oxygen Delivery Method Room Air Nasal Cannula Room Air Oxygen Flow Rate 10/14/24 14:44 10/14/24 14:46 10/14/24 14:48 Temperature Pulse Rate 49 L 47 L Respiratory Rate 23 27 H Blood Pressure 174/75 H Pulse Oximetry 86 L 95 Oxygen Delivery Method Room Air Nasal Cannula Oxygen Flow Rate 2.5 10/14/24 14:48 10/14/24 14:50 10/14/24 14:52 Temperature Pulse Rate 47 L 47 L 48 L Respiratory Rate 11 L 19 19 Blood Pressure Pulse Oximetry 97 98 98 Oxygen Delivery Method Nasal Cannula Nasal Cannula Nasal Cannula Oxygen Flow Rate 2.5 2.5 2.5 10/14/24 14:54 10/14/24 14:56 10/14/24 14:58 Temperature Pulse Rate 48 L 41 L 43 L Respiratory Rate 16 16 13 Blood Pressure Pulse Oximetry 97 96 97 Oxygen Delivery Method Nasal Cannula Nasal Cannula Nasal Cannula Oxygen Flow Rate 2.5 2.5 2.5 10/14/24 15:00 10/14/24 15:00 10/14/24 15:15 Temperature Pulse Rate 44 L 46 L Respiratory Rate 14 17 Blood Pressure 155/72 H Pulse Oximetry 96 97 Oxygen Delivery Method Nasal Cannula Nasal Cannula Oxygen Flow Rate 2.5 2.5 10/14/24 15:30 10/14/24 15:31 10/14/24 15:31 Temperature Pulse Rate 37 L 37 L Respiratory Rate 15 17 Blood Pressure 143/64 H Pulse Oximetry 97 96 Oxygen Delivery Method Nasal Cannula Nasal Cannula Oxygen Flow Rate 2.5 1 10/14/24 15:45 10/14/24 16:00 10/14/24 16:00 Temperature Pulse Rate 47 L 43 L Respiratory Rate 16 17 Blood Pressure 164/69 H Pulse Oximetry 97 95 Oxygen Delivery Method Nasal Cannula Oxygen Flow Rate 1 10/14/24 16:15 10/14/24 16:30 10/14/24 16:30 Temperature Pulse Rate 41 L 44 L Respiratory Rate 18 14 Blood Pressure 170/78 H Pulse Oximetry 96 96 Oxygen Delivery Method Oxygen Flow Rate 10/14/24 16:45 10/14/24 17:00 10/14/24 17:04 Temperature Pulse Rate 38 L 57 L Respiratory Rate 13 Blood Pressure 166/109 H Pulse Oximetry 96 Oxygen Delivery Method Oxygen Flow Rate 10/14/24 17:04 10/14/24 17:15 Temperature Pulse Rate 46 L 45 L Respiratory Rate 22 22 Blood Pressure Pulse Oximetry 94 96 Oxygen Delivery Method Nasal Cannula Nasal Cannula Oxygen Flow Rate 1 1 Oxygen Delivery Method Nasal Cannula Oxygen Flow Rate 1 Narrative Exam Narrative: NAD, alert and oriented, fluent speech, calm. Pleasant, not confused. Chronically ill in appearance. Normocephalic skull, EOMI, anicteric sclera, symmetric pupils. Oropharynx unremarkable, no droop. Neck supple, midline trachea, no adenopathy. Lungs clear, normal rate and effort. Heart regular, no murmur gallop or rub. Abdomen is soft, non distended and non tender. Extremities with edema. Skin is free of rash or lesions. Joints are not swollen or deformed. Judgment appears to be normal. Objective ECG Impression: Intervals [place] Rate: 49 P: 22 TN: 210 QRS: -16 QRSD: 134 T: -14 QT: 494 QTc: 446 Interpretive Statements Sinus bradycardia with 1st degree AV block Right bundle branch block Imaging Chest x-ray: Radiologist's impression: IMPRESSION: Increased vascularity with likely trace effusions and cardiomegaly consistent with edema. Labs 10/14/24 14:45 10/14/24 14:45 Labs: Laboratory Results - last 24 hr 10/14/24 14:45 WBC 6.3 RBC 3.68 L Hgb 12.5 Hct 35.5 L MCV 96.6 MCH 34.0 MCHC 35.2 RDW 15.2 H Plt Count 128 L Neut % (Auto) 76.3 H Lymph % (Auto) 12.2 L [place] % (Auto) 8.6 Eos % (Auto) 2.4 Baso % (Auto) 0.5 Neut # (Auto) 4800 Lymph # (Auto) 800 L [place] # (Auto) 500 Eos # (Auto) 200 Baso # (Auto) 0 PT 13.4 H INR 1.2 Sodium 136 L Potassium 3.9 Chloride 100 Carbon Dioxide 32 BUN 20 H Creatinine 0.82 Estimated GFR > 60 BUN/Creatinine Ratio 24.4 H Glucose 47 L Lactate 0.5 L Calcium 8.6 Total Bilirubin 1.7 H AST 30 ALT 20 Alkaline Phosphatase 83 Troponin I < 0.012 NT-Pro-B Natriuret Pep 1220 H Total Protein 7.3 Albumin 3.9 Globulin 3.4 Albumin/Globulin Ratio 1.1 Assessment & Plan Assessment & Plan narrative: 1. CHF with Volume overload and pulmonary edema, present on admission and active. 2. HARPER cirrhosis, present on admission and active. 3. HTN, present on admission and active. 4. Varices, present on admission and active. 5. DM 2, present on admission and active. 6. Hypoglycemia with altered mental status, present on admission and improving. This has been a recurrent issue. PLAN: -lasix IV BID -ECHO to assess LV function -monitor electrolytes -monitor stools and hemoglobin -low-salt diet, carb controlled -fluid restriction -correctional lispro and decrease glargine to 50 units b.i.d. from 100, and 90 at her baseline. -check TSH and troponin Anticipate 1 night in the hospital, supports observation status. She was full resuscitation Time-Based Coding :: 35 min spent with patient and on the chart (including review of chart, obtaining history, exam, reviewing outside data, placing orders, documenting exam and treatment plan, and counseling patient) on 10/14. Quality MIPS - Admit The patient?s Advance Care plan is not present because I confirmed today that the patient does not wish or was not able to name a surrogate decision maker or provide an Advance Care Plan.: Yes MIPS - Meds 'Current medications' to include all prescriptions, [id number] products, herbals, cannabis/cannabidiol products, and vitamin/mineral/dietary (nutritional) supplements. I have utilized all available resources to obtain, update, or review the patient?s current medications. [If Yes, STOP here]: Yes
--- NOTE | 2024-10-14 18:41 | DI.ECHO.S_ITS ---
[place] +---------+ Hospital : : [address] : : [place] : : [id number] : : Phone: [phone] Echocardiogram Report + + :Name: POLLO AUSTIN Study Date: 10/15/2024 Height: 62 in : :Hospital ReadingLocation: Weight: 217 lb : : Gender: Female BSA: 2.0 m2 : :: 1945 Age: 79 yrs BP: 179/67 mmHg: :Reason For Study: CONGESTIVE HEART FAILURE : :Ordering Physician: SHELDON, : :DHEERAJ Sinclair Performed By: Sharita Epps : :Referring: DHEERAJ CHUNG : + + Interpretation Summary The left ventricle is normal in size and wall thickness. Left ventricular systolic function appears normal without focal wall motion abnormalities. The ejection fraction is estimated to be 60-65%. The right ventricle is at the upper limits of normal in size. The right ventricular systolic function is normal. Right ventricular systolic pressure is estimated to be 38 mmHg plus the clinically estimated CVP which cannot be estimated on this exam. The left atrium is borderline dilated. There is mild mitral regurgitation. There is no other significant valvular heart disease. The aortic root is normal size. Procedure: A two-dimensional transthoracic echocardiogram with color flow and Doppler was performed. The study quality was technically adequate. There is no prior echocardiogram noted for this patient. A contrast injection of Definity was performed to improve assessment of LV function. The heart rate ranged between 50-59 bpm during the study. Left Ventricle: The left ventricle is normal in size and wall thickness. Left ventricular systolic function appears normal without focal wall motion abnormalities. The ejection fraction is estimated to be 60-65%. Diastolic function could not be accurately assessed due to unobtainable data. Right Ventricle: The right ventricle is at the upper limits of normal in size. The right ventricular systolic function is normal. Atria: The left atrium is borderline dilated. Right atrial size is normal. There is no Doppler evidence for an interatrial shunt. Mitral Valve: The mitral valve leaflets appear to open well. There is mild mitral regurgitation. Aortic Valve: The aortic valve is trileaflet. The aortic valve opens well. There is no aortic valve stenosis. There is trace aortic regurgitation. Tricuspid Valve: The tricuspid valve leaflets are thin and pliable. There is mild tricuspid regurgitation. Right ventricular systolic pressure is estimated to be 38 mmHg plus the clinically estimated CVP which cannot be estimated on this exam. Pulmonic Valve: The pulmonic valve leaflets are thin and pliable; valve motion is normal. There is no pulmonic valvular regurgitation. There is no other significant valvular heart disease. Great Vessels: The aortic root is normal size. The dimensions of the ascending aorta are normal. The inferior vena cava was not well visualized. Pericardium/ Pleura There is no pericardial effusion. There is no pleural effusion. MMode/2D Measurements & Calculations LVIDd: 5.1 cm LVOT diam: 2.0 cm LVIDs: 3.3 cm Ao root diam: 3.0 cm FS: 35.7 % asc Aorta Diam: 3.0 cm EPSS: 0.76 cm Ao Arch Diam (Prox Trans): 2.7 cm IVSd: 1.0 cm LVPWd: 0.84 cm LV adams. diameter/BSA (cm/m^2): 2.6 LV sys. diameter/BSA (cm/m^2): 1.6 LA A2 area: 20.1 cm2 RA long axis: 5.0 cm LA A4 area: 20.1 cm2 RA area: 15.4 cm2 LA length (vol): 5.2 cm RA vol: 40.5 ml LA vol: 66.2 ml RA : 20.5 ml/m2 LA vol index: 33.5 ml/m2 RVD1 (basal): 4.1 cm TAPSE: 2.3 cm Doppler Measurements & Calculations Ao V2 max: 117.4 cm/sec LVOT Max Abran: 99.0 cm/sec Ao V2 mean: 75.6 cm/sec LV V1 max P.9 mmHg Ao max P.5 mmHg LV V1 VTI: 23.4 cm Ao mean P.6 mmHg MIKE(I,D): 2.8 cm2 Ao V2 VTI: 27.0 cm MIKE(V,D): 2.7 cm2 sev ratio: 0.87 MIKE indexed to BSA (cm^2/m^2): 1.4 MV E max abran: 128.1 cm/sec TR max abran: 306.0 cm/sec MV A max abran: 30.4 cm/sec TR max P.5 mmHg MV E/A: 4.2 PA V2 max: 89.1 cm/sec Med Peak E' Abran: 4.9 cm/sec PA V2 mean: 61.9 cm/sec E/E' med: 26.0 PA mean P.7 mmHg Lat Peak E' Abran: 5.7 cm/sec PA pr(Accel): 35.3 mmHg E/E' lat: 22.4 E/e' average: 24.2 MV dec time: 0.16 sec SV(LVOT): 74.5 ml Reading Physician:10:59 AM
[2024-10-14 20:19] LABS: Add Manual Diff / Slide Review NO; Basophils Absolute Auto 0 /uL (0-100); Basophils Percent Auto 0.3 % (0-2); Eosinophils Absolute Auto 0 /uL (0-450); Eosinophils Percent Auto 0.9 % (2-4); Hemoglobin 12.9 g/dL (12.0-16.0); Lymphocytes Absolute Auto 700 /uL (1100-4500); Lymphocytes Percent Auto 14.5 % (25-40); Mean Corpuscular HGB Conc 34.7 % (30-36); Mean Corpuscular Hemoglobin 33.5 PG (26-34); Mean Corpuscular Volume 96.5 fL (80-100); Monocytes Absolute Auto 400 /uL (0-900); Monocytes Percent Auto 7.4 % (3-14); Neutrophils Absolute Auto 3900 /uL (1500-7000); Neutrophils Percent Auto 76.9 % (50-75); Platelet Count 99 X10^3/uL (150-400); Red Blood Cell Count 3.84 X10^6/uL (4.0-5.2); Red Cell Distribution Width 14.9 % (11.6-14.8); White Blood Cell Count 5.1 X10^3/uL (4.5-11.0)
[2024-10-14 20:27] LABS: Hemoglobin A1C% w Est Avg Glu 7.5 % (4.0-6.0)
[2024-10-14] MEDS: lisinopriL 10 MG TABLET PO (21:32)
[2024-10-14] MEDS: HEPARIN 5,000 UNIT/ML VIAL 5000 UNIT SUBCUT (21:36)
[2024-10-14] MEDS: INSULIN GLARGINE 100 UNIT/ML 3ML PEN 50 UNIT SUBCUT (21:36)
--- NOTE | 2024-10-14 23:47 | PC.WOUNDPHOT ---
LLE RLE LLE medial
[2024-10-15] VITALS (11 sets, daily range): BP systolic 162–194; BP diastolic 55–68; PULSE 51–60; RESP 16–19; TEMP 35.6–37.1; O2SAT 94–99
[2024-10-15] MEDS: FUROSEMIDE 40 MG/4 ML VIAL IV ×3 (00:13→23:49)
[2024-10-15 06:40] LABS: BUN Creatinine Ratio 27.1 (6-22); Blood Urea Nitrogen 23 mg/dL (7-17); Calcium 8.7 mg/dL (8.4-10.2); Carbon Dioxide 35 mmol/L (22-32); Chloride 98 mmol/L (98-107); Estimated Glomerular Filt Rate > 60 mL/min (>60); Glucose 109 mg/dL (70-99); HEMOLYSIS < 15 (0-50); Magnesium 1.7 mg/dL (1.6-2.3); Potassium 3.7 mmol/L (3.4-5.1); Sodium 137 mmol/L (137-145)
[2024-10-15 06:42] LABS: Albumin 3.6 g/dL (3.5-5.0); BUN Creatinine Ratio 28.4 (6-22); Blood Urea Nitrogen 23 mg/dL (7-17); Calcium 8.7 mg/dL (8.4-10.2); Carbon Dioxide 36 mmol/L (22-32); Chloride 98 mmol/L (98-107); Estimated Glomerular Filt Rate > 60 mL/min (>60); Glucose 109 mg/dL (70-99); HEMOLYSIS < 15 (0-50); Potassium 3.8 mmol/L (3.4-5.1); Sodium 137 mmol/L (137-145)
[2024-10-15 06:52] LABS: Troponin I < 0.012 ng/mL (0.01-0.034)
[2024-10-15 07:21] LABS: Thyroid Stimulating Hormone 2.83 uIU/mL (0.47-4.68)
[2024-10-15] MEDS: lisinopriL 20 MG TABLET PO (10:26)
[2024-10-15] MEDS: HEPARIN 5,000 UNIT/ML VIAL 5000 UNIT SUBCUT ×2 (10:26→22:24)
[2024-10-15] MEDS: INSULIN GLARGINE 100 UNIT/ML 3ML PEN 50 UNIT SUBCUT ×2 (10:27→22:26)
[2024-10-15] MEDS: INSULIN LISPRO 100 UNIT/ML 3ML VIAL SUBCUT ×2 (12:08→17:06)
--- NOTE | 2024-10-15 14:38 | CM.DANOTE ---
Initial DCP Assessment Visit Note Reviewed EMR and team rounds for status updates. Met with pt, spouse, and son-in-law at bedside to introduce self and role. Pt was found to be alert/oriented, sitting upright in the recliner, appearing comfortable and visiting with family. Pt resides modified independent at baseline with a cane. Family will transport her home once she's medically cleared for home d/c. Family decline any CM d/c assistance or resource needs at this time. Payor: Medicare PCP: Heidy Goncalves Pt is a 79 year-old F with a hx of non-alcoholic cirrhosis, prior banding of varices, hypertension, type II diabetes, and CHF, presented to the ED with c/o worsening SOB over the last several weeks. Family chared that pt also has chronic edema of her extremities, and imaging in the ED also showed cariomegaly, consistent with edema. She did require O2 placement in the ED, however is not on O2 at home baseline. Pt was diagnosed at having a CHF exacerbation with fluid overload. Plan was made to admit for diuresis and ECHO. 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 DCP will continue to monitor for any further evolving needs prior to her d/c home. Discharge Planning/Care Management CM Discharge Assessment Start: 10/14/24 17:36 Freq: Status: Active Protocol: Document 10/15/24 14:36 DPL (Rec: 10/15/24 14:38 DPL [id number]) Discharge Planning Assessment Assigned Cooperative Extension Agent KANDICE Greer Advance Directives? No History Provided By Patient,Family Member, Significant Other,Medical Record Expected Length of Stay 2 Has Patient been admitted in last 30 No days? Prior Living Arrangements House Household Members significant other Type of transporation used prior to Relies on Others admit Independent with ADL's No: modified ind with a cane and family assistance Is patient alert and oriented? Yes Needs Assistance With Home Chores / Shopping Caregiver for Another No DME Already Rented / Owned Bath Bench,Elevated Toilet Seat,Cane Comment No identified home d/c needs at this time. Barriers to Discharge No Discharge Plan Home Referrals Initiated None needed Whiteboard Updated in Patient Room with Yes name and ext. # of Cooperative Extension Agent Review Status In Process Please Provide Date Initial DC 10/15/24 Assessment Was Performed
--- NOTE | 2024-10-15 14:41 | P.PN_ITS ---
Subjective Subjective Date Patient Seen: 10/15/24 Interval history: Chief complaint: Increased edema weight gain and shortness of breath secondary to acute right- sided congestive heart failure hypoglycemia History of present illness: 79-year-old female with HARPER cirrhosis, varices, HTN, and IDDM. She lives in [place] with her . He was her proxy decision maker. She was accompanied by her son who lives very nearby. She was found to be hypoglycemic this morning and took 3 cookies and had moderate improvement but remained confused. She was then brought to the ER where she was still confused and her hypoglycemia was corrected. She has hypoglycemia about twice a week but also has high blood sugars. She notes that her diet is quite variable and she was in follow her diabetic guidelines very well. She takes Lantus 100 in the morning and 90 at night. She was not take any pills or short-acting insulin. She also has HARPER cirrhosis and has had progressive volume overload. She was admitted to the hospital in [place] once and had 40-60 lb of water diuresed. She has a history of HARPER cirrhosis and variceal bleeding with variceal banding in the past. No recent nausea, vomiting, abdominal pain, hematemesis, or melena. She denies a known history of heart failure. She has been quite fatigued recently with walking. She denies any chest pain. Hospital course: No complaints today good urine output discussed at length patient drinks a lot of water throughout the day discussed fluid restriction Echocardiogram: The left ventricle is normal in size and wall thickness. Left ventricular systolic function appears normal without focal wall motion abnormalities. The ejection fraction is estimated to be 60-65%. The right ventricle is at the upper limits of normal in size. The right ventricular systolic function is normal. Right ventricular systolic pressure is estimated to be 38 mmHg plus the clinically estimated CVP which cannot be estimated on this exam. The left atrium is borderline dilated. There is mild mitral regurgitation. There is no other significant valvular heart disease. The aortic root is normal size. Review of systems: No fever or chills No chest pain palpitations No cough or shortness a breath No nausea vomiting diarrhea Physical exam: No acute distress HEENT unremarkable Heart rate and rhythm regular Lungs clear from ACPs bases Lower extremities chronic brawny edema with some pruning Assessment and plan: Acute on chronic cor pulmonale with lower extremity edema anasarca together with HARPER -continue diuresis -change amlodipine to Imdur -Add Aldactone -monitor electrolytes -monitor stools and hemoglobin -low-salt diet, carb controlled -fluid restriction -correctional lispro and decrease glargine to 50 units b.i.d. from 100, and 90 at her baseline. -check TSH and troponin Diabetes mellitus on insulin with hypoglycemia -better on reduced dose of insulin Severe hypertension not adequately controlled -observe effect of Imdur and increased diuresis She was full resuscitation Time-Based Coding :: 35 min spent with patient and on the chart (including review of chart, obtaining history, exam, reviewing outside data, placing orders, documenting exam and treatment plan, and counseling patient) Exam Vital Signs (past 8 hours): - 10/15/24 08:00 10/15/24 10:26 10/15/24 10:36 Temperature 97.3 F L Pulse Rate 60 52 L Respiratory Rate 18 Blood Pressure 162/55 H 162/55 H Pulse Oximetry 99 95 Oxygen Delivery Method Room Air Oxygen Flow Rate 2 0 10/15/24 13:35 Temperature 97.3 F L Pulse Rate 60 Respiratory Rate 16 Blood Pressure 179/63 H Pulse Oximetry 94 Oxygen Delivery Method Oxygen Flow Rate 0 Oxygen Delivery Method Room Air Oxygen Flow Rate 0 Objective Labs 10/14/24 20:12 10/15/24 06:10 Labs: Laboratory Results - last 24 hr 10/14/24 10/14/24 10/15/24 14:45 20:12 06:10 WBC 6.3 5.1 RBC 3.68 L 3.84 L Hgb 12.5 12.9 Hct 35.5 L 37.0 MCV 96.6 96.5 MCH 34.0 33.5 MCHC 35.2 34.7 RDW 15.2 H 14.9 H Plt Count 128 L 99 L Neut % (Auto) 76.3 H 76.9 H Lymph % (Auto) 12.2 L 14.5 L [place] % (Auto) 8.6 7.4 Eos % (Auto) 2.4 0.9 L Baso % (Auto) 0.5 0.3 Neut # (Auto) 4800 3900 Lymph # (Auto) 800 L 700 L [place] # (Auto) 500 400 Eos # (Auto) 200 0 Baso # (Auto) 0 0 PT 13.4 H INR 1.2 Sodium 136 L 137 Potassium 3.9 Chloride 100 Carbon Dioxide 32 BUN 20 H Creatinine 0.82 Estimated GFR > 60 BUN/Creatinine Ratio 24.4 H Glucose 47 L Hemoglobin A1c 7.5 H Lactate 0.5 L Calcium 8.6 Phosphorus Magnesium Total Bilirubin 1.7 H AST 30 ALT 20 Alkaline Phosphatase 83 Troponin I < 0.012 NT-Pro-B Natriuret Pep 1220 H Total Protein 7.3 Albumin 3.9 Globulin 3.4 Albumin/Globulin Ratio 1.1 [facility] 10/15/24 10/15/24 10/15/24 06:10 06:10 06:10 WBC RBC Hgb Hct MCV MCH MCHC RDW Plt Count Neut % (Auto) Lymph % (Auto) [place] % (Auto) Eos % (Auto) Baso % (Auto) Neut # (Auto) Lymph # (Auto) [place] # (Auto) Eos # (Auto) Baso # (Auto) PT INR Sodium 137 Potassium 3.7 3.8 Chloride 98 98 Carbon Dioxide 35 H BUN Creatinine Estimated GFR BUN/Creatinine Ratio Glucose Hemoglobin A1c Lactate Calcium Phosphorus Magnesium Total Bilirubin AST ALT Alkaline Phosphatase Troponin I NT-Pro-B Natriuret Pep Total Protein Albumin Globulin Albumin/Globulin Ratio [facility] 10/15/24 10/15/24 10/15/24 06:10 06:10 06:10 WBC RBC Hgb Hct MCV MCH MCHC RDW Plt Count Neut % (Auto) Lymph % (Auto) [place] % (Auto) Eos % (Auto) Baso % (Auto) Neut # (Auto) Lymph # (Auto) [place] # (Auto) Eos # (Auto) Baso # (Auto) PT INR Sodium Potassium Chloride Carbon Dioxide 36 H BUN 23 H 23 H Creatinine 0.85 0.81 Estimated GFR > 60 BUN/Creatinine Ratio Glucose Hemoglobin A1c Lactate Calcium Phosphorus Magnesium Total Bilirubin AST ALT Alkaline Phosphatase Troponin I NT-Pro-B Natriuret Pep Total Protein Albumin Globulin Albumin/Globulin Ratio [facility] 10/15/24 10/15/24 10/15/24 06:10 06:10 06:10 WBC RBC Hgb Hct MCV MCH MCHC RDW Plt Count Neut % (Auto) Lymph % (Auto) [place] % (Auto) Eos % (Auto) Baso % (Auto) Neut # (Auto) Lymph # (Auto) [place] # (Auto) Eos # (Auto) Baso # (Auto) PT INR Sodium Potassium Chloride Carbon Dioxide BUN Creatinine Estimated GFR > 60 BUN/Creatinine Ratio 27.1 H 28.4 H Glucose 109 H 109 H Hemoglobin A1c Lactate Calcium 8.7 Phosphorus Magnesium Total Bilirubin AST ALT Alkaline Phosphatase Troponin I NT-Pro-B Natriuret Pep Total Protein Albumin Globulin Albumin/Globulin Ratio TSH 10/15/24 06:10 WBC RBC Hgb Hct MCV MCH MCHC RDW Plt Count Neut % (Auto) Lymph % (Auto) [place] % (Auto) Eos % (Auto) Baso % (Auto) Neut # (Auto) Lymph # (Auto) [place] # (Auto) Eos # (Auto) Baso # (Auto) PT INR Sodium Potassium Chloride Carbon Dioxide BUN Creatinine Estimated GFR BUN/Creatinine Ratio Glucose Hemoglobin A1c Lactate Calcium 8.7 Phosphorus 4.0 Magnesium 1.7 Total Bilirubin AST ALT Alkaline Phosphatase Troponin I < 0.012 NT-Pro-B Natriuret Pep Total Protein Albumin 3.6 Globulin Albumin/Globulin Ratio TSH 2.83 [facility] Social History household members: significant other Smoking Status: Never smoker Assessment & Plan Time-Based Coding :: [TOTAL MINUTES] spent with patient and on the chart (including review of chart, obtaining history, exam, reviewing outside data, placing orders, documenting exam and treatment plan, and counseling patient) on [DATE].
[2024-10-15] MEDS: ISOSORBIDE MONONITRATE ER 30 MG TABLET 15 MG PO (17:43)
[2024-10-15] MEDS: lisinopriL 10 MG TABLET PO (22:24)
[2024-10-16] VITALS: BP 160/77; PULSE 86; RESP 19; TEMP 37.1; O2SAT 96
--- NOTE | 2024-10-16 02:22 | PC.WOUNDPHOT ---
Addendum entered by Rody Emmanuel R.N. 10/16/24 06:28: blood sugar at 06:15 is 53. Patient having snack now. Original Note: blood sugar 60 at midnight, had snack of sandwich, yogurt, orange juice. Recheck at 02:00- bs 163.
[2024-10-16 04:00] VITALS: BP 152/86; PULSE 86; RESP 19; TEMP 36.7; O2SAT 96
[2024-10-16 06:04] LABS: BUN Creatinine Ratio 30.7 (6-22); Blood Urea Nitrogen 31 mg/dL (7-17); Calcium 8.6 mg/dL (8.4-10.2); Carbon Dioxide 37 mmol/L (22-32); Chloride 97 mmol/L (98-107); Estimated Glomerular Filt Rate 57 mL/min (>60); Glucose 78 mg/dL (70-99); HEMOLYSIS < 15 (0-50); Magnesium 1.7 mg/dL (1.6-2.3); Potassium 3.6 mmol/L (3.4-5.1); Sodium 137 mmol/L (137-145)
[2024-10-16 06:12] LABS: NT-proBNP (BNP-Adult 18+) 766 pg/mL (<450)
--- NOTE | 2024-10-16 07:29 | PC.NURSE ---
ICU nurse reported patient was bradying down to low 40's. Notified provider and imdur held. Endorced lisinopril and imdur to oncoming nurse to follow up with MD regarding medications.
[2024-10-16 08:00] VITALS: BP 153/64; PULSE 67; RESP 20; TEMP 36.5; O2SAT 94; O2SAT 95
[2024-10-16 08:32] VITALS: BP 153/64; PULSE 58
[2024-10-16] MEDS: lisinopriL 20 MG TABLET PO (08:32)
[2024-10-16] MEDS: SPIRONOLACTONE 25 MG TABLET PO (08:32)
[2024-10-16] MEDS: HEPARIN 5,000 UNIT/ML VIAL 5000 UNIT SUBCUT (08:32)
[2024-10-16] MEDS: INSULIN LISPRO 100 UNIT/ML 3ML VIAL SUBCUT ×2 (08:33→11:57)
[2024-10-16] MEDS: INSULIN GLARGINE 100 UNIT/ML 3ML PEN 50 UNIT SUBCUT (09:58)
[2024-10-16] MEDS: MAGNESIUM CHLORIDE 64 MG TABLET 128 MG PO (09:58)
[2024-10-16 11:12] LABS: Hematocrit 34.3 % (36-46); Mean Corpuscular HGB Conc 34.9 % (30-36); Mean Corpuscular Hemoglobin 33.6 PG (26-34); Mean Corpuscular Volume 96.4 fL (80-100); Platelet Count 114 X10^3/uL (150-400); Red Blood Cell Count 3.56 X10^6/uL (4.0-5.2); Red Cell Distribution Width 14.6 % (11.6-14.8)
[2024-10-16] MEDS: FUROSEMIDE 40 MG/4 ML VIAL IV (11:58)
[2024-10-16 12:00] VITALS: BP 179/68; PULSE 64; RESP 16; TEMP 36.4; O2SAT 95
[2024-10-16] MEDS: ISOSORBIDE MONONITRATE ER 30 MG TABLET PO (13:15)
--- NOTE | 2024-10-16 13:19 | PM.DS.1 ---
History of Present Illness History of Present Illness Date Patient Seen: 10/16/24 Chief complaint: Water retention X 30 Days Narrative: Chief complaint: Increased edema weight gain and shortness of breath secondary to acute right-sided congestive heart failure hypoglycemia History of present illness: 79-year-old female with HARPER cirrhosis, varices, HTN, and IDDM. She lives in [place] with her . He was her proxy decision maker. She was accompanied by her son who lives very nearby. She was found to be hypoglycemic this morning and took 3 cookies and had moderate improvement but remained confused. She was then brought to the ER where she was still confused and her hypoglycemia was corrected. She has hypoglycemia about twice a week but also has high blood sugars. She notes that her diet is quite variable and she was in follow her diabetic guidelines very well. She takes Lantus 100 in the morning and 90 at night. She was not take any pills or short-acting insulin. She also has HARPER cirrhosis and has had progressive volume overload. She was admitted to the hospital in [place] once and had 40-60 lb of water diuresed. She has a history of HARPER cirrhosis and variceal bleeding with variceal banding in the past. No recent nausea, vomiting, abdominal pain, hematemesis, or melena. She denies a known history of heart failure. She has been quite fatigued recently with walking. She denies any chest pain. Hospital course: No complaints today good urine output discussed at length patient drinks a lot of water throughout the day discussed fluid restriction Echocardiogram: The left ventricle is normal in size and wall thickness. Left ventricular systolic function appears normal without focal wall motion abnormalities. The ejection fraction is estimated to be 60-65%. The right ventricle is at the upper limits of normal in size. The right ventricular systolic function is normal. Right ventricular systolic pressure is estimated to be 38 mmHg plus the clinically estimated CVP which cannot be estimated on this exam. The left atrium is borderline dilated. There is mild mitral regurgitation. There is no other significant valvular heart disease. The aortic root is normal size. Review of systems: No fever or chills No chest pain palpitations No cough or shortness a breath No nausea vomiting diarrhea Physical exam: No acute distress HEENT unremarkable Heart rate and rhythm regular Lungs clear from ACPs bases Lower extremities chronic brawny edema with some pruning Assessment and plan: Acute on chronic cor pulmonale with lower extremity edema anasarca together with HARPER -continue diuresis with oral Lasix twice a day -change amlodipine to Imdur 30 mg twice a day -Add Aldactone 25 mg twice a day -monitor electrolytes -monitor stools and hemoglobin -low-salt diet, carb controlled -fluid restriction -correctional lispro and decrease glargine to 50 units b.i.d. from 100, and 90 at her baseline. -check TSH and troponin Diabetes mellitus on insulin with hypoglycemia -better on reduced dose of insulin Severe hypertension not adequately controlled -observe effect of Imdur and increased diuresis She was full resuscitation Time-Based Coding :: 35 min spent with patient and on the chart (including review of chart, obtaining history, exam, reviewing outside data, placing orders, documenting exam and treatment plan, and counseling patient) Discharge Providers Provider Date of admission: 10/14/24 17:05 Discharge Date: 10/16/24 Primary care physician: Heidy Goncalves PA-C Discharge provider: Adrian Meredith MD Exam Vital Signs (past 8 hours): - 10/16/24 08:00 10/16/24 08:00 10/16/24 08:32 Temperature 97.7 F Pulse Rate 67 58 L Respiratory Rate 20 Blood Pressure 153/64 H 153/64 H Pulse Oximetry 95 94 Oxygen Delivery Method Room Air Oxygen Flow Rate 0 0 10/16/24 12:00 Temperature 97.6 F Pulse Rate 64 Respiratory Rate 16 Blood Pressure 179/68 H Pulse Oximetry 95 Oxygen Delivery Method Oxygen Flow Rate 0 Oxygen Delivery Method Room Air Oxygen Flow Rate 0 Objective Labs 10/16/24 05:08 10/16/24 05:08 Labs: Laboratory Results - last 24 hr 10/16/24 05:08 WBC 5.0 RBC 3.56 L Hgb 12.0 Hct 34.3 L MCV 96.4 MCH 33.6 MCHC 34.9 RDW 14.6 Plt Count 114 L Sodium 137 Potassium 3.6 Chloride 97 L Carbon Dioxide 37 H BUN 31 H Creatinine 1.01 Estimated GFR 57 L BUN/Creatinine Ratio 30.7 H Glucose 78 Calcium 8.6 Magnesium 1.7 NT-Pro-B Natriuret Pep 766 H PFSH Social History household members: significant other Smoking Status: Never smoker Discharge Plan Discharge orders & Medications Discharge Orders: Discharge (Order); Ordered 10/16/24 Ordered By: Adrian Meredith Prescriptions: New isosorbide mononitrate 30 mg Tablet Extended Release 24 Hr 30 mg PO BID Qty: 60 1RF spironolactone 25 mg Tablet 25 mg PO 0900,1700 Qty: 60 0RF insulin glargine [Lantus Solostar U-100 Insulin] 100 unit/mL (3 mL) Insulin Pen 30 unit SUBCUT BID Qty: 6 0RF Continued Systane (PF) 0.4-0.3 % Dropperette 1 drp OPHTHALMIC (EYE) BID acetylcysteine (PF) in water 10 % Drops 1 drp OPHTHALMIC (EYE) BID Rx Instructions: left eye 4times a day Cyclosporine in [place] 0.1-0.25 % Drops 1 drp OPHTHALMIC (EYE) BID carvedilol 12.5 mg tablet 12.5 mg PO BID lisinopril 20 mg tablet See Rx Instructions .ROUTE .COMPLEX Patient Comments: Take 1 tablet by mouth every morning and 1/2 tablet by mouth every evening. Rx Instructions: Take 20mg every morning and 10mg every night Discontinued furosemide 20 mg tablet 20 mg PO DAILY insulin glargine [Lantus U-100 Insulin] 100 unit/mL solution 100 unit SUBCUT BID Patient Comments: [NO ORIGINAL SIG] Rx Instructions: 100 units in the morning and 90 units at bedtime amlodipine 5 mg tablet 5 mg PO QPM Follow up/Referrals: Heidy Goncalves PA-C [Primary Care Provider] - Visit Report/Discharge Packet Stand Alone Forms: Patient Portal/API, Stroke Signs & Symptoms Discharge Data Primary Care Provider: Heidy Goncalves
--- NOTE | 2024-10-16 14:18 | CM.DPNOTE ---
DCP Continued: Reviewed EMR and team rounds for pt?s medical status. Per hospitalist, pt to continue diuresis treatment and possible discharge home today, 10/16. Discharge orders placed on 10/16, no social needs identified at this time. Plan: Anticipating dc home with family to transport. CM Team will continue to follow for coordination of discharge plans. SUZIE Self
== END 2024-10-16 14:25 | disposition home or self-care (01) | DRG 315 ==
LOC: ED 17:05 → AC 18:32
PROVIDERS: Internal Medicine; Admitting Provider Hospitalist; Emergency Provider Emergency Medicine; PCP Physician Assistant Medical; Referring Provider Emergency Medicine; Visit Provider Hospitalist
DX: I27.81 Cor pulmonale (chronic) (principal); I85.00 Esophageal varices without bleeding; I11.0 Hypertensive heart disease with heart failure; K75.81 Nonalcoholic steatohepatitis (NASH); E11.649 Type 2 diabetes mellitus with hypoglycemia without coma; I50.813 Acute on chronic right heart failure; Z79.4 Long term (current) use of insulin
CPT/HCPCS: 36415; 71045; 80048; 80053; 80069; 82962; 83036; 83605; 83735; 83880; 84443; 84484; 85025; 85027; 85610; 93005; 96374; 99284; 99285; A9270; C8929; J1644; J1815; J1938; Q9957